=== PATIENT | female | born 1960 | race African-American/Black ===

== ENCOUNTER 2020-06-21 19:21 | Emergency (ER) | payer BC ==
[~2020-06-21] VITALS: Ht 170.2 cm; Wt 73.5 kg
[2020-06-21 19:27] VITALS: BP 128/86
--- NOTE | 2020-06-21 19:27 | NUR ---
PT TAKEN TO BED 5
--- NOTE | 2020-06-21 19:30 | NUR ---
60 Y/O FEMALE PRESENTS TO ER WITH INTERMITTENT RT QUADRANT ABDOMINAL PAIN X 2 DAYS. 6/10 PAIN. WITH C/O NAUSEA, CONSTIPATION, AND LBM WAS YESTERDAY WITH HARD STOOL. DENIES VOMITING, DIARRHEA, COUGH, FEVER, SOB, INJURY TO AREA. R/R EQUAL, AND UNLABORED. VSS. SIDE RAIL X1, WILL CONTINUE TO MONITOR. DENIES PMH NKDA
--- NOTE | 2020-06-21 19:43 | NUR ---
Dr. Dey examining patient.
[2020-06-21] MEDS ORDERED: KETOROLAC 30 MG/ML VIAL IM ONE (20:00)
[2020-06-21] MEDS ORDERED: SUCRALFATE 1 GM TAB PO SCH (20:00)
[2020-06-21] MEDS ORDERED: ALUMINUM HYD/MAG/SIMETHICONE 30 ML UDC PO ONE (20:00)
[2020-06-21 20:18] LABS: BASOPHILS % (AUTO) 0.6 % (0.0-2.0); EOSINOPHILS % (AUTO) 1.4 % (0.0-4.0); HEMATOCRIT 37.2 % (36-48); HEMOGLOBIN 11.9 g/dL (12.0-16.0); LYMPHOCYTES # (AUTO) 1.1 K/uL (2.5-16.5); LYMPHOCYTES % (AUTO) 39.9 % (20.5-51.1); MEAN CORPUSCULAR HEMOGLOBIN 27 pg (27-31); MEAN CORPUSCULAR HGB CONC 32 g/dL (33-37); MEAN CORPUSCULAR VOLUME 83.2 fL (80-94); MONOCYTES # (AUTO) 0.4 K/uL (0.8-1.0); MONOCYTES % (AUTO) 14.9 % (1.7-9.3); NEUTROPHILS # (AUTO) 1.2 K/uL (1.8-7.7); NEUTROPHILS % (AUTO) 43.2 % (42.2-75.2); PLATELET COUNT (AUTO) 180 K/uL (140-450); RED BLOOD CELL COUNT(AUTO) 4.47 MIL/uL (4.20-5.40); RED CELL DISTRIBUTION WIDTH 14.7 % (11.6-13.7); WHITE BLOOD COUNT (AUTO) 2.7 K/uL (4.8-10.8)
[2020-06-21 20:39] LABS: ALBUMIN 3.7 g/dL (3.4-5.0); ANION GAP 13.1 (8-16); CARBON DIOXIDE 27.8 mmol/L (21-32); CREATININE 1.2 mg/dL (0.6-1.3); POTASSIUM 3.9 mmol/L (3.5-5.1); TOTAL BILIRUBIN 0.2 mg/dL (0.0-1.0)
[2020-06-21 21:34] VITALS: BP 128/86
--- NOTE | 2020-06-21 21:34 | NUR ---
Patient discharged with v/s stable. Written and verbal after care instructions given and explained. Patient alert, oriented and verbalized understanding of instructions. Carried with steady gait. All questions addressed prior to discharge. ID band removed. Patient advised to follow up with PMD. Rx of MIRALAX given. Patient educated on indication of medication including possible reaction and side effects. Opportunity to ask questions provided and answered.
== END 2020-06-21 21:34 | disposition home or self-care (01) ==
LOC: MED 19:21
DX: K59.00 Constipation, unspecified (principal)
CPT/HCPCS: 36415; 80053; 85025; 99283; J1885